=== PATIENT | female | born 1990 | race Caucasian/White ===

== ENCOUNTER 2023-01-31 18:40 | Emergency (ER) | payer MEDICAID ==
[~2023-01-31] VITALS: Ht 152.4 cm; Wt 88.0 kg
[2023-01-31 19:32] LABS: BASOPHILS % 0.2 % (0.0-2.0); EOSINOPHILS % 12.1 % (0.0-5.0); HEMATOCRIT. 39.3 % (36.0-48.0); HEMOGLOBIN. 13.3 g/dL (12.0-16.0); LYMPHOCYTES % 29.3 % (20.0-50.0); MEAN CORPUSCULAR HEMOGLOBIN 31.6 pg (28.0-32.0); MEAN CORPUSCULAR VOLUME 93.5 fL (81.0-99.0); MEAN PLATELET VOLUME 8.6 fl (7.4-10.4); NEUTROPHILS % 53.4 % (40.0-76.0); PLATELET 315 x1000/uL (130-400)
[2023-01-31 19:40] LABS: CHLORIDE 106 mEq/L (98-107)
[2023-01-31 19:45] LABS: HCG SCREEN NEGATIVE
[2023-01-31 19:59] VITALS: BP 130/82
[2023-01-31] MEDS ORDERED: ONDANSETRON 4MG ODT PO STA (21:43)
[2023-01-31] MEDS ORDERED: KETOROLAC 60MG/2ML VIAL IM STA (21:43)
[2023-01-31 21:47] LABS: CLARITY URINE CLEAR (CLEAR); COLOR URINE YELLOW (YELLOW); KETONES URINE NEGATIVE (NEGATIVE); LEUKOCYTE ESTERASE URINE NEGATIVE (NEGATIVE); NITRITE URINE NEGATIVE (NEGATIVE); OCCULT BLOOD URINE NEGATIVE (NEGATIVE); PROTEIN URINE NEGATIVE (NEGATIVE)
[2023-01-31] MEDS ORDERED: ONDANSETRON HCL 4MG/2ML INJ IV STA (22:42)
[2023-01-31] MEDS ORDERED: SODIUM CHLORIDE 0.9% 1,000 ML IV ONE (22:45)
[2023-01-31] MEDS ORDERED: ONDA4TAB50 MT (23:50)
[2023-01-31] MEDS ORDERED: IMOD MT (23:50)
== END 2023-02-01 | disposition home or self-care (01) ==
LOC: ER 18:40
DX: R11.2 Nausea with vomiting, unspecified (principal); R10.9 Unspecified abdominal pain
CPT/HCPCS: 36415; 74018; 80053; 81003; 83690; 84703; 85025; 96361; 96372; 96374; 99284; J1885; J2405; J7030; Q0162